=== PATIENT | female | born 1975 | race Caucasian/White ===

== ENCOUNTER → 2016-05-11 | Outpatient (CLI) | payer OTHER ==
--- NOTE | 2016-05-11 14:51 | REP ---
Right lower extremity deep vein duplex ultrasound: There are no comparison studies. The deep veins demonstrate normal compression, normal Doppler color flow and normal Doppler waveforms from the popliteal vein to the common femoral vein. There is no deep vein thrombus. However, there varicosities and there is intraluminal thrombus in the superficial veins varicosity medial to the knee. Signed by Ramiro Núñez MD 05/11/2016 02:42 P
== END ==
LOC: M RAD 13:58
PROVIDERS: ATTEND Physician Assistant
DX: M79.604 Pain in right leg (principal); R22.41 Localized swelling, mass and lump, right lower limb; I83.891 Varicose veins of right lower extremity with other complications

== ENCOUNTER 2016-08-19 23:59 | Emergency (ER) | payer OTHER ==
[~2016-08-19] VITALS: Ht 152.4 cm; Wt 57.0 kg
[2016-08-20] MEDS ORDERED: XANA1TAB2 PO (00:25)
[2016-08-20] MEDS ORDERED: TRAM50TA2 PO (00:25)
[2016-08-20] MEDS ORDERED: HYDROmorphone HCL 1 MG/ML SYRINGE (J1170) IM ONE (03:00)
[2016-08-20 05:11] VITALS: BP 109/74
[2016-08-20] MEDS ORDERED: KETOROLAC 60 MG/2 ML VIAL (J1885) IM ONE (05:30)
[2016-08-20] MEDS ORDERED: NORCO 5/325MG TABLET (BULK FOR ED) PO ONE (05:30)
--- NOTE | 2016-08-20 08:14 | REP ---
RIGHT SHOULDER, THREE VIEWS: HISTORY: Pain. There is no acute fracture or dislocation. The joint spaces are normal in appearance. IMPRESSION: There is no acute fracture or dislocation. Signed by Bashir Dow MD 08/20/2016 08:17 A
== END 2016-08-20 06:13 | disposition home or self-care (01) ==
LOC: M ED 23:59
DX: M75.81 Other shoulder lesions, right shoulder (principal); F41.9 Anxiety disorder, unspecified; F17.200 Nicotine dependence, unspecified, uncomplicated; Z79.899 Other long term (current) drug therapy
CPT/HCPCS: 73030; 96372; 99283; J1170; J1885

== ENCOUNTER 2016-08-27 15:08 | Emergency (ER) | payer OTHER ==
[~2016-08-27] VITALS: Ht 152.4 cm; Wt 59.6 kg
[~2016-08-27 15:08] MED LIST: TRAM50TA2 PO; XANA1TAB2 PO
[2016-08-27 15:11] VITALS: BP 120/72
[2016-08-27] MEDS ORDERED: IBUP-1022 PO (15:44)
== END 2016-08-27 16:00 | disposition home or self-care (01) ==
LOC: M ED 15:08
DX: S46.011A Strain of muscle(s) and tendon(s) of the rotator cuff of right shoulder, initial encounter (principal); X50.0XXA Overexertion from strenuous movement or load, initial encounter; Y92.511 Restaurant or cafe as the place of occurrence of the external cause; Y93.G9 Activity, other involving cooking and grilling; Y99.8 Other external cause status; F41.9 Anxiety disorder, unspecified; F17.200 Nicotine dependence, unspecified, uncomplicated; Z79.899 Other long term (current) drug therapy

== ENCOUNTER 2017-02-18 17:28 | Observation (INO) | payer SELFPAY, OTHER ==
[2017-02-18 18:06] LABS: ABG BASE EXCESS -3.8 (-2.0-2.0); ABG HCO3 21.2 MEQ/L (22.0-26.0); ABG O2 SATURATION 96.4 % (95.0-99.0); ABG PARTIAL PRESSURE CO2 38.5 mmHg (35.0-45.0); ABG PARTIAL PRESSURE O2 81.9 mmHg (75.0-100.0); ABG STANDARD HCO3 21.3 MEQ/L (22.0-26.0); ABG TOTAL CO2 22.4 MEQ/L (22.0-29.0); ABG pH (ARTERIAL) 7.359 UNITS (7.350-7.450)
[2017-02-18 18:14] LABS: BASO # 0.1 10^3/uL (0.0-0.2); BASO % 0.5 % (0.0-1.0); EOS # 0.1 10^3/uL (0.0-0.50); EOS % 1.1 % (0.0-3.0); HEMATOCRIT 40.7 % (36.0-47.0); HEMOGLOBIN 13.7 g/dl (12.0-16.0); IMMATURE GRANULOCYTE # 0.2 10^3/uL (0-0); IMMATURE GRANULOCYTE % 1.6 % (0-0); LYMPH # 1.9 10^3/uL (1.5-4.5); MEAN CORPUSCULAR HEMOGLOBIN 32.2 pg (27.0-33.0); MEAN CORPUSCULAR HGB CONC 33.7 g/dl (32.0-36.5); MEAN CORPUSCULAR VOLUME 95.8 fl (80.0-96.0); MONO # 0.3 10^3/uL (0.0-0.8); MONO % 2.7 % (0.0-5.0); NEUTROPHILS # 8.8 10^3/uL (1.8-7.7); NEUTROPHILS % 77.1 % (36.0-66.0); PLATELET COUNT, AUTOMATED 231 10^3/uL (150-450); RED BLOOD COUNT 4.25 10^6/uL (4.00-5.40); RED CELL DISTRIBUTION WIDTH 12.5 % (11.5-14.5); WHITE BLOOD COUNT 11.4 10^3/uL (4.0-10.0)
[2017-02-18 18:16] LABS: BEDSIDE GLUCOSE 134 MG/DL (70-105)
[2017-02-18 18:27] LABS: CONTROL LINE HCG INT CTR LINE PRESENT; HCG, SERUM QUALITATIVE NEGATIVE (NEGATIVE); KETONE, URINE AUTO RFX TRACE mg/dL (NEGATIVE); MUCUS, URINE RFX LARGE (NEGATIVE); NITRITE, URINE AUTO RFX NEGATIVE (NEGATIVE); RBC, URINE AUTO RFX 12 /HPF (0-3); SPECIFIC GRAVITY UR AUTO RFX 1.018 (1.002-1.035); SQUAM EPITHELIAL CELL UR AURFX 92 /HPF (0-6)
[2017-02-18 18:32] LABS: OSMOLALITY SERUM 295 MOSM/KG (275-295)
[2017-02-18 18:39] LABS: LEUKOCYTE ESTERASE UR AUTO RFX 1+ (NEGATIVE); WBC, URINE AUTO RFX 31 /HPF (0-3)
[2017-02-18 18:40] LABS: AMPHETAMINES LEVEL URINE NEGATIVE (NEGATIVE); BARBITURATES URINE NEGATIVE (NEGATIVE); BENZODIAZEPINES URINE POSITIVE (NEGATIVE); CANNABINOIDS URINE NEGATIVE (NEGATIVE); COCAINE METABOLITE URINE POSITIVE (NEGATIVE); METHADONE URINE NEGATIVE (NEGATIVE); OPIATES URINE POSITIVE (NEGATIVE); PHENCYCLIDINE URINE NEGATIVE (NEGATIVE)
[2017-02-18 18:51] LABS: LACTIC ACID SEPSIS PROTOCOL 5.9 MMOL/L (0.4-2.0)
[2017-02-18 18:52] LABS: ALKALINE PHOSPHATASE 96 U/L (45-117); ALT/SGPT 177 U/L (12-78); ANION GAP 14 MEQ/L (8-16); AST/SGOT 120 U/L (7-37); BILIRUBIN,DIRECT 0.1 MG/DL (0.0-0.2); BILIRUBIN,TOTAL 0.3 MG/DL (0.2-1.0); BLOOD UREA NITROGEN 18 MG/DL (7-18); CALCIUM LEVEL 7.7 MG/DL (8.5-10.1); CARBON DIOXIDE LEVEL 18 MEQ/L (21-32); CHLORIDE LEVEL 109 MEQ/L (98-107); CPK CREATINE PHOSPHOKINASE 229 U/L (26-192); CREATININE FOR GFR 0.76 MG/DL (0.55-1.02); GLOMERULAR FILTRATION RATE > 60.0 (>58); GLUCOSE, FASTING 170 MG/DL (70-105); POTASSIUM SERUM 3.3 MEQ/L (3.5-5.1); SODIUM LEVEL 141 MEQ/L (136-145)
[2017-02-18] MEDS: MULTIVITAMIN -ADULT INJECTION 10 ML, THIAMINE INJection 100 MG, FOLIC ACID 1 MG in NS 1... IV (18:52)
[2017-02-18 18:53] LABS: ACETAMINOPHEN LEVEL < 2.0 UG/ML (10.0-30.0); ALBUMIN 3.5 GM/DL (3.2-5.2); ALBUMIN/GLOBULIN RATIO 1.09 (1.00-1.93); ETHYL ALCOHOL (ETHANOL) < 0.003 % (0.000-0.010); SALICYLATE LEVEL < 1.7 MG/DL (5.0-30.0); TOTAL PROTEIN 6.7 GM/DL (6.4-8.2)
[2017-02-18] MEDS: SODIUM CHLORIDE 0.9% 1000 ML IV ×2 (19:00→19:30)
[2017-02-18] MEDS: POTASSIUM CHLORIDE 10 MEQ SR TABLET PO (19:00)
[2017-02-18 19:10] LABS: CARBOXYHEMOGLOBIN 4.9 % (0.0-1.5)
[2017-02-18 19:17] LABS: FREE T4 1.16 NG/DL (0.76-1.46); MAGNESIUM LEVEL 2.1 MG/DL (1.8-2.4); TROPONIN I 0.03 NG/ML (< 0.10)
[2017-02-18 19:23] LABS: INR 0.94; PROTHROMBIN TIME 12.7 SECONDS (12.4-14.5)
[2017-02-18] MEDS: NS 1,000 ML IV (21:25)
[2017-02-18] MEDS ORDERED: ONDANSETRON 4MG/2ML VIAL (J2405) IV (21:30)
[2017-02-19 06:44] LABS: CARBOXYHEMOGLOBIN 1.3 % (0.0-1.5)
[2017-02-19 06:44] LABS: BASO % 0.4 % (0.0-1.0); EOS # 0.1 10^3/uL (0.0-0.50); EOS % 1.5 % (0.0-3.0); HEMATOCRIT 30.9 % (36.0-47.0); IMMATURE GRANULOCYTE # 0.1 10^3/uL (0-0); IMMATURE GRANULOCYTE % 0.6 % (0-0); LYMPH # 2.6 10^3/uL (1.5-4.5); MEAN CORPUSCULAR HEMOGLOBIN 32.1 pg (27.0-33.0); MEAN CORPUSCULAR VOLUME 94.5 fl (80.0-96.0); MONO # 0.6 10^3/uL (0.0-0.8); MONO % 6.9 % (0.0-5.0); NEUTROPHILS # 4.8 10^3/uL (1.8-7.7); NEUTROPHILS % 58.6 % (36.0-66.0); PLATELET COUNT, AUTOMATED 196 10^3/uL (150-450); RED BLOOD COUNT 3.27 10^6/uL (4.00-5.40); RED CELL DISTRIBUTION WIDTH 12.7 % (11.5-14.5); WHITE BLOOD COUNT 8.3 10^3/uL (4.0-10.0)
[2017-02-19 06:49] LABS: HEMOGLOBIN 10.5 g/dl (12.0-16.0)
[2017-02-19 07:14] LABS: ALT/SGPT 149 U/L (12-78); ANION GAP 7 MEQ/L (8-16); AST/SGOT 99 U/L (7-37); BLOOD UREA NITROGEN 12 MG/DL (7-18); CALCIUM LEVEL 7.5 MG/DL (8.5-10.1); CARBON DIOXIDE LEVEL 24 MEQ/L (21-32); CHLORIDE LEVEL 112 MEQ/L (98-107); CPK CREATINE PHOSPHOKINASE 85 U/L (26-192); CREATININE FOR GFR 0.54 MG/DL (0.55-1.02); GLOMERULAR FILTRATION RATE > 60.0 (>58); GLUCOSE, FASTING 116 MG/DL (70-105); POTASSIUM SERUM 3.8 MEQ/L (3.5-5.1); SODIUM LEVEL 143 MEQ/L (136-145); THYROID STIMULATING HORMONE 0.957 uIU/ML (0.358-3.740)
[2017-02-19 07:41] LABS: ERYTHROCYTE SEDIMENTATION RATE 91 mm/hr (0-20)
[2017-02-19 08:21] LABS: C REACTIVE PROTEIN QUANTITATIV 1.06 MG/DL (0.00-0.30)
[2017-02-19] MEDS ORDERED: ENOXAPARIN 40 MG/0.4 ML SYRINGE (J1650) SC (09:00)
[2017-03-02 08:25] LABS: MDPV Negative; MEPHEDRONE Negative
[2017-03-02 08:26] LABS: METHYLONE Negative
== END 2017-02-19 08:04 | disposition home or self-care (01) ==
LOC: M ED 17:28 → M ED INP 21:22
DX: T50.901A Poisoning by unspecified drugs, medicaments and biological substances, accidental (unintentional), initial encounter (principal); I49.9 Cardiac arrhythmia, unspecified; E87.2 Acidosis; M62.82 Rhabdomyolysis; T58.94XA Toxic effect of carbon monoxide from unspecified source, undetermined, initial encounter; Y92.098 Other place in other non-institutional residence as the place of occurrence of the external cause; R74.0 Nonspecific elevation of levels of transaminase and lactic acid dehydrogenase [LDH]; E87.6 Hypokalemia; R94.6 Abnormal results of thyroid function studies; F41.9 Anxiety disorder, unspecified; Z79.899 Other long term (current) drug therapy; F17.210 Nicotine dependence, cigarettes, uncomplicated; F14.10 Cocaine abuse, uncomplicated; F12.10 Cannabis abuse, uncomplicated; F19.10 Other psychoactive substance abuse, uncomplicated
CPT/HCPCS: J3411

== ENCOUNTER → 2018-06-11 | Outpatient (CLI) | payer OTHER ==
[~2018-06-11] MED LIST changes: +ALPR1TAB3 PO; +IBUP-1022 PO; +METH-1022 PO; +METH20TA29 PO
[2018-06-11 12:43] LABS: HEMATOCRIT 41.8 % (36.0-47.0); MEAN CORPUSCULAR HEMOGLOBIN 32.9 pg (27.0-33.0); MEAN CORPUSCULAR HGB CONC 33.5 g/dl (32.0-36.5); MEAN CORPUSCULAR VOLUME 98.1 fl (80.0-96.0); PLATELET COUNT, AUTOMATED 225 10^3/uL (150-450); RED BLOOD COUNT 4.26 10^6/uL (4.00-5.40); WHITE BLOOD COUNT 9.1 10^3/uL (4.0-10.0)
[2018-06-11 13:23] LABS: HEMOGLOBIN A1c 5.3 %
[2018-06-11 13:26] LABS: ALBUMIN 3.5 GM/DL (3.2-5.2); ALT/SGPT 56 U/L (12-78); BILIRUBIN,TOTAL 0.3 MG/DL (0.2-1.0); BLOOD UREA NITROGEN 19 MG/DL (7-18); CALCIUM LEVEL 8.8 MG/DL (8.5-10.1); CARBON DIOXIDE LEVEL 28 MEQ/L (21-32); CHLORIDE LEVEL 108 MEQ/L (98-107); CHOLESTEROL LEVEL 258 MG/DL (<200); CHOLESTEROL RISK RATIO 3.225 (<5); CREATININE FOR GFR 0.58 MG/DL (0.55-1.30); GLOMERULAR FILTRATION RATE > 60.0 (>58); GLUCOSE, FASTING 81 MG/DL (70-100); HDL CHOLESTEROL 80 MG/DL (>40); LDL CHOLESTEROL 149 MG/DL (<100); NON-HDL-C 178 MG/DL; POTASSIUM SERUM 4.8 MEQ/L (3.5-5.1); SODIUM LEVEL 141 MEQ/L (136-145); THYROXINE (T4) 9.2 UG/DL (4.5-12.0); TOTAL PROTEIN 7.6 GM/DL (6.4-8.2); TRIGLYCERIDES LEVEL 147 MG/DL (<150)
[2018-06-11 14:08] LABS: TOTAL 25(OH) VITAMIN D 13.9 NG/ML (30.0-100.0)
--- NOTE | 2018-06-11 16:57 | REPMRS ---
Patient History The patient states she has not had a clinical breast exam in over a year. Family history of colorectal cancer in maternal grandfather. Digital Mammo Screening Bilat: June 11, 2018 - Exam #: [id number] Bilateral CC and MLO view(s) were taken. Technologist: Anat Romero Technologist FINDINGS: There are scattered fibroglandular densities. There is no evidence of dominant mass, architectural distortion, or clustered microcalcification typical of malignancy. 3-D tomosynthesis shows no additional findings. Assessment: BI-RADS/ACR category 1 mammogram. Negative Mammogram. Recommendation Routine screening mammogram of both breasts in 1 year (for women over age 40). This patient's Lifetime Breast Cancer RIsk is estimated at 7.9 %. This mammogram was interpreted with the aid of an FDA-approved computer-aided dectection system. Electronically Signed By: Dalton Newton MD 06/11/18 [id number]
--- NOTE | 2018-06-13 00:01 | ECGEPIP ---
Stationary ECG Study Test Date: 2018-06-11 Pat Name: MIKE BROCK Department: Room: - Gender: F Ripsaw Matcher: JL : 1975 Requested By: Daya Quiroga Order Number: [id number] Reading MD: Gab Kevin Measurements Intervals [place] Rate: 85 P: 39 CA: 146 QRS: 26 QRSD: 90 T: 41 QT: 370 QTc: 441 Interpretive Statements SINUS RHYTHM MOST RECENT TRACING ON 02/18/2017 AT 5:58:18 P.M.. A JUNCTIONAL RHYTHM WAS NOTED Electronically Signed On 06-13-2018 0:00:51 EDT by Gab Kevin
== END ==
LOC: M LAB 11:48
PROVIDERS: ATTEND Family Medicine
DX: I10 Essential (primary) hypertension (principal); R53.83 Other fatigue; E03.9 Hypothyroidism, unspecified; Z12.31 Encounter for screening mammogram for malignant neoplasm of breast

== ENCOUNTER → 2018-11-21 | Outpatient (CLI) | payer OTHER ==
[2018-11-21 15:21] LABS: HEMATOCRIT 40.8 % (36.0-47.0); HEMOGLOBIN 13.5 g/dl (12.0-15.5); MEAN CORPUSCULAR HEMOGLOBIN 31.8 pg (27.0-33.0); MEAN CORPUSCULAR HGB CONC 33.1 g/dl (32.0-36.5); PLATELET COUNT, AUTOMATED 253 10^3/uL (150-450); RED BLOOD COUNT 4.25 10^6/uL (4.00-5.40); WHITE BLOOD COUNT 6.5 10^3/uL (4.0-10.0)
[2018-11-21 15:56] LABS: ALBUMIN 3.4 GM/DL (3.2-5.2); ALT/SGPT 78 U/L (12-78); BILIRUBIN,TOTAL 0.4 MG/DL (0.2-1.0); BLOOD UREA NITROGEN 12 MG/DL (7-18); CALCIUM LEVEL 8.9 MG/DL (8.5-10.1); CARBON DIOXIDE LEVEL 29 MEQ/L (21-32); CHLORIDE LEVEL 107 MEQ/L (98-107); CHOLESTEROL LEVEL 194 MG/DL (<200); CHOLESTEROL RISK RATIO 4.619 (<5); CREATININE FOR GFR 0.77 MG/DL (0.55-1.30); GLOMERULAR FILTRATION RATE > 60.0 (>58); GLUCOSE, FASTING 98 MG/DL (70-100); HDL CHOLESTEROL 42 MG/DL (>40); LDL CHOLESTEROL 97 MG/DL (<100); NON-HDL-C 152 MG/DL; POTASSIUM SERUM 3.8 MEQ/L (3.5-5.1); SODIUM LEVEL 140 MEQ/L (136-145); TOTAL PROTEIN 6.5 GM/DL (6.4-8.2); TRIGLYCERIDES LEVEL 276 MG/DL (<150)
[2018-11-21 15:57] LABS: TOTAL 25(OH) VITAMIN D 18.3 NG/ML (30.0-100.0)
== END ==
LOC: M LAB 14:45
PROVIDERS: ATTEND Family Medicine
DX: I10 Essential (primary) hypertension (principal); R53.83 Other fatigue; E03.9 Hypothyroidism, unspecified

== ENCOUNTER → 2019-04-10 | Outpatient (CLI) | payer OTHER ==
[2019-04-10 13:48] LABS: AMPHETAMINES URINE REFLEX NEGATIVE (NEGATIVE); BARBITURATES URINE REFLEX NEGATIVE (NEGATIVE); BENZODIAZEPINES URINE REFLEX NEGATIVE (NEGATIVE); CANNABINOIDS URINE REFLEX NEGATIVE (NEGATIVE); COCAINE METABOLITE URINE REFLE NEGATIVE (NEGATIVE); METHADONE URINE REFLEX NEGATIVE (NEGATIVE); OPIATES URINE REFLEX NEGATIVE (NEGATIVE); PHENCYCLIDINE URINE REFLEX NEGATIVE (NEGATIVE)
== END ==
LOC: M LAB 12:02
PROVIDERS: ATTEND Family Medicine
DX: Z79.899 Other long term (current) drug therapy (principal)

== ENCOUNTER → 2019-05-15 | Outpatient (CLI) | payer OTHER ==
[2019-05-15 17:27] LABS: ALBUMIN 3.9 GM/DL (3.2-5.2); ALT/SGPT 132 U/L (12-78); BILIRUBIN,TOTAL 0.6 MG/DL (0.2-1.0); BLOOD UREA NITROGEN 22 MG/DL (7-18); CALCIUM LEVEL 9.6 MG/DL (8.5-10.1); CARBON DIOXIDE LEVEL 27 MEQ/L (21-32); CHLORIDE LEVEL 102 MEQ/L (98-107); CHOLESTEROL LEVEL 262 MG/DL (<200); CHOLESTEROL RISK RATIO 3.797 (<5); CREATININE FOR GFR 0.79 MG/DL (0.55-1.30); GLOMERULAR FILTRATION RATE > 60.0 (>58); GLUCOSE, FASTING 96 MG/DL (70-100); HDL CHOLESTEROL 69 MG/DL (>40); LDL CHOLESTEROL 177 MG/DL (<100); NON-HDL-C 193 MG/DL; POTASSIUM SERUM 3.7 MEQ/L (3.5-5.1); SODIUM LEVEL 137 MEQ/L (136-145); TOTAL PROTEIN 7.8 GM/DL (6.4-8.2); TRIGLYCERIDES LEVEL 80 MG/DL (<150)
[2019-05-15 17:29] LABS: TOTAL 25(OH) VITAMIN D 28.8 NG/ML (30.0-100.0)
== END ==
LOC: M LAB 15:51
PROVIDERS: ATTEND Family Medicine
DX: D64.9 Anemia, unspecified (principal); E03.9 Hypothyroidism, unspecified

== ENCOUNTER 2020-07-22 14:09 | Inpatient (IN) | payer OTHER ==
[~2020-07-22] VITALS: Ht 152.4 cm; Wt 83.3 kg
[2020-07-22] MEDS ORDERED: GABA-282 PO (14:22)
[2020-07-22 15:45] LABS: HEMATOCRIT 38.6 % (36.0-47.0); HEMOGLOBIN 13.1 g/dl (12.0-15.5); MEAN CORPUSCULAR HEMOGLOBIN 31.6 pg (27.0-33.0); MEAN CORPUSCULAR HGB CONC 33.9 g/dl (32.0-36.5); PLATELET COUNT, AUTOMATED 174 10^3/uL (150-450); RED BLOOD COUNT 4.15 10^6/uL (4.00-5.40); WHITE BLOOD COUNT 10.1 10^3/uL (4.0-10.0)
[2020-07-22 16:18] LABS: BLOOD UREA NITROGEN 17 MG/DL (7-18); CALCIUM LEVEL 9.5 MG/DL (8.5-10.1); CARBON DIOXIDE LEVEL 26 MEQ/L (21-32); CHLORIDE LEVEL 105 MEQ/L (98-107); CREATININE FOR GFR 0.66 MG/DL (0.55-1.30); GLOMERULAR FILTRATION RATE > 60.0 (>58); GLUCOSE, FASTING 107 MG/DL (70-100); POTASSIUM SERUM 3.9 MEQ/L (3.5-5.1); SODIUM LEVEL 134 MEQ/L (136-145)
[2020-07-22] MEDS ORDERED: NS 2,420 ML in IV 1 EA IV ONE (16:30)
[2020-07-22] MEDS ORDERED: VANCOMYCIN HCL 1,500 MG in NS 250 ML IV ONE (16:30)
[2020-07-22] MEDS ORDERED: ACETAMINOPHEN 500 MG TAB PO ONE (16:30)
[2020-07-22 17:07] LABS: ATYPICAL LYMPH 8 % (0-5); BASOPHILS 1 % (0-1); LYMPHOCYTES 14 % (16-44); MONOCYTES 4 % (0-5); NEUTROPHILS 53 % (28-66); PLATELET ESTIMATE NORMAL (NORMAL)
[2020-07-22 17:17] LABS: RSV AMPLIFICATION NEGATIVE (NEGATIVE)
[2020-07-22 17:30] LABS: HCG, SERUM QUALITATIVE NEGATIVE (NEGATIVE)
--- NOTE | 2020-07-22 17:51 | REP ---
INDICATION: severe redness, swelling. COMPARISON: None. TECHNIQUE: Multiple ultrasonographic images of the deep venous structures of the left lower extremity were obtained from the inguinal ligament to the ankle. Venous compression techniques, color doppler imaging, and augmentation techniques were also obtained where appropriate. As per the ACR guidelines the anterior tibial vein can not be effectively evaluated. Only compression techniques in the calf on the peroneal and posterior tibial veins was attempted/performed. FINDINGS: There is no abnormal echogenic material seen within any of the visualized deep venous structures that would suggest acute thrombosis. Coaptation is unremarkable throughout. Doppler interrogation shows an expected response to respiratory variability and augmentation in the thigh. Compression techniques in the calf were unobtainable. The color flow images show what appears to be a normal vascular pattern throughout the thigh. IMPRESSION: There is no ultrasonographic evidence of deep venous thrombosis involving any of the visualized deep venous structures of the left lower extremity as described above. Due to technical parameters calf vein DVT can not be ruled out. <Electronically signed by Wojciech Hunter > 07/22/20 [id number]
--- NOTE | 2020-07-22 17:52 | REP ---
INDICATION: severe redness, swelling. COMPARISON: None. TECHNIQUE: Ultrasonographic evaluation over an area of focal erythema and swelling in the left distal calf medially FINDINGS: There are no cystic or solid masses. There is no ultrasonographic evidence of a well-demarcated abscess. There is no abnormal fluid collection. IMPRESSION: No abnormality noted as described above. <Electronically signed by Wojciech Hunter > 07/22/20 [id number]
[2020-07-22] MEDS ORDERED: VANCOMYCIN HCL 750 MG, VIAL MATE ADAPTER 1 EACH in NS 250 ML IV ONE ×2 (18:00→19:00)
[2020-07-22 18:51] LABS: MONO REFLEX EBV COMP NEGATIVE (NEGATIVE)
[2020-07-22 18:55] LABS: CK-MB VALUE MASS 1.1 NG/ML (<3.6); CPK CREATINE PHOSPHOKINASE 126 U/L (26-192); MB/CK RELATIVE INDEX 0.87 (< OR =4)
[2020-07-22] MEDS ORDERED: KETOROLAC 30 MG/ML 1ML VIAL IV ONE (19:05)
[2020-07-22] MEDS ORDERED: MOM 30ML SUSPENSION UDC PO PRN (19:45)
[2020-07-22 20:13] LABS: ERYTHROCYTE SEDIMENTATION RATE 76 mm/hr (0-20)
[2020-07-22] MEDS ORDERED: ISOVUE-370 76% 100ML VIAL As Ordered ONE (20:48)
--- NOTE | 2020-07-22 20:56 | HPEPDOC ---
[facility] Medical History & Physical Date of Admission Jul 22, 2020 Date of Service: Jul 22, 2020 Primary Care Physician: Daya Quinonez Attending Physician: MATTEO DUKE MD History and Physical CHIEF COMPLAINT: Left lower extremity swelling and redness HISTORY OF PRESENT ILLNESS: . Ms. Alaniz is a 45-year-old female who presented to the ER this afternoon with complaints of redness and swelling at the left lower extremity since Monday. Patient states she got up on Monday and didn't feel well but went to work anyway at [employer]. She was noted to have a positive fever greater than 101 and was sent home. She said she went straight to bed. When she went home and didn't really know the source of her illness. He was talking to her son at about midnight that night when he noticed some redness at the left ankle. She denies any falls, acute trauma, bites or injections at that site. She noted that the erythema had extended up her leg. The next day. She complained of swelling at the leg. She said she did not notice any further fever or chills. She denied any nausea, vomiting or diarrhea. She states that the leg did not hurt, but that it itched sometimes. She stated that when she would scratch it, it would then burn. She thought about coming to the ER on Monday with the erythema extending up her leg, but decided that she was too tired. When she woke up today, the erythema was intense and there were blisters at her knee since last night. She decided it was time to be evaluated and presented to the ER. On initial evaluation she was noted to be hypotensive with blood pressure of 90/50. She was given IV fluids per sepsis protocol and blood pressure improved. She has had a persistent fever with MAXIMUM TEMPERATURE of 100.9. She was tachycardic with heart rate of 112. Lactic acid was elevated at 3.1. CRP was also elevated at 12.8. She exhibited a mild white count of 10.1 with bandemia of 20. Lower extremity venous ultrasound and extremity ultrasound were negative for any acute pathology. No DVT noted. The patient denies any recent history of drug use, stating she quit all illicit substances. 2 years ago. Urine tox screen is pending. PAST MEDICAL HISTORY: 1. Anxiety. 2. ADHD. 3. Restless leg syndrome. 4. Polysubstance abuse. PAST SURGICAL HISTORY: . 1. Vein ligation.. SOCIAL HISTORY: Tobacco use:. Patient states she quit 2 years ago ETOH:. Denies Illicit drug use: Admits to smoking pot occasionally Patient lives with:. Her sons FAMILY HISTORY: . Patient's mother at age 56 secondary to liver cancer. Her father had a history of coronary artery disease and at age 44. REVIEW OF SYSTEMS: Complete 10 point review systems is negative except as noted above PHYSICAL EXAMINATION: Patient is seen in the ER, lying on the stretcher.. She is alert and oriented x 3. HEENT is WNL. Neck is supple. Lungs are clear to auscultation. Heart regular rate and rhythm without murmur. Abdomen is soft, non-tender to palpation with bowel sounds positive. Extremities with good ROM and strength equal bilaterally. Pedal pulses are positive. Left lower extremity with erythema extending from her ankle to the left groin area. There is positive adenopathy in the left groin. Blisters noted on the anterior knee. Some areas of this erythema are extremely intense, but there is no open wound. No obvious acute injury or injection site. Leg does not seem to be particularly painful to light touch. She does complain of some pain at the knee with movement. Neuro: grossly intact. Psych: She is pleasant and cooperative ASSESSMENT AND PLAN: 1. Sepsis, severe, secondary to left lower extremity cellulitis, etiology unc lear, as evidenced by tachycardia, hypotension, fever, leukocytosis with bandemia, lactic acidosis, elevated CRP. Will continue patient on IV fluids per sepsis protocol. We'll recheck lactic acid as well as pro-calcitonin. We'll continue the patient on vancomycin and Zosyn. We'll obtain a CT of the left lower extremity to assess for any discrete abscesses or fluid at the knee. Will also check echocardiogram with history of IV drug abuse. Toradol will be available for pain. Will adjust antibiotics as needed based on imaging and culture results. 2. Left lower extremity cellulitis. Plan as noted above. May need to consult orthopedics for aspiration. If fluid is noted at the knee. 3. Hypotension. Improved with fluids. Continue to monitor closely with routine vital signs. IV fluids to continue per protocol. 4. Fever in the setting of sepsis secondary left lower external cellulitis. Continue antipyretics as needed. 5. Restless leg syndrome. Continue home gabapentin. 6. DVT prophylaxis. Lovenox. CODE STATUS: CODE STATUS was discussed with the patient. He desires to be considered full code. She states her son would act as her surrogate if she were unable to make her own decisions. Patient is considered high risk of further deterioration including possible septic shock. She is admitted as inpatient and expected to remain at least 2-3 midnight. 6. Vital Signs Vital Signs Date Time Temp Pulse Resp B/P (MAP) Pulse Ox O2 Delivery O2 Flow Rate FiO2 07/22/20 19:04 100.3 07/22/20 19:00 92 116/65 (82) 99 Room Air 07/22/20 16:32 18 Laboratory Data Labs 24H Laboratory Tests 2 07/22/20 14:55: Neutrophils (%) (Auto) , Nucleated Red Blood Cells % (auto) 0.0, Neutrophils 53, Band Neutrophils 20H, Lymphocytes (Manual) 14L, Monocytes (Manual) 4, Basophils (Manual) 1, Atypical Lymphocytes 8H, Platelet Estimate NORMAL, Anion Gap 3L, Glomerular Filtration Rate > 60.0, Calcium Level 9.5, Total Creatine Kinase 126, Creatine Kinase MB 1.1, Creatine Kinase MB Relative Index 0.87, C-Reactive Protein, Quantitative 12.80H, Human Chorionic Gonadotropin, Qual NEGATIVE, Mon oscreen NEGATIVE 07/22/20 16:25: Coronavirus (COVID-19)(PCR) NEGATIVE, Influenza Type A (RT-PCR) NEGATIVE, Influenza Type B (RT-PCR) NEGATIVE, Respiratory Syncytial Virus (PCR) NEGATIVE 07/22/20 16:42: Lactic Acid Level 3.1*H CBC/BMP Laboratory Tests 07/22/20 14:55 Microbiology Microbiology 07/22/20 Blood Culture, Received Pending 07/22/20 Blood Culture, Received Pending Home Medications Scheduled Gabapentin (Gabapentin) 300 Mg Capsule, 300 MG PO TID Allergies Coded Allergies: No Known Allergies (Verified , 07/22/20) A-FIB/CHADSVASC A-FIB History Current/History of A-Fib/PAF?: No GIULIANA KEANE Jul 22, 2020 20:56
[2020-07-22 21:12] LABS: AMPHETAMINES LEVEL URINE NEGATIVE (NEGATIVE); BARBITURATES URINE NEGATIVE (NEGATIVE); BENZODIAZEPINES URINE NEGATIVE (NEGATIVE); CANNABINOIDS URINE POSITIVE (NEGATIVE); COCAINE METABOLITE URINE NEGATIVE (NEGATIVE); METHADONE URINE NEGATIVE (NEGATIVE); OPIATES URINE NEGATIVE (NEGATIVE); PHENCYCLIDINE URINE NEGATIVE (NEGATIVE)
[2020-07-22] MEDS: GABAPENTIN 300 MG CAP PO SCH (21:13)
[2020-07-22] MEDS: PIPERACILLIN/TAZOBACTAM SOD 4.5 GM in D5W MINI-BAG PLUS 50 ML IV SCH (21:13)
[2020-07-22] MEDS: MUPIROCIN 2% OINT 22 GM TUBE TOP SCH (22:00)
[2020-07-22 22:32] VITALS: BP 115/72
--- NOTE | 2020-07-22 23:04 | REPVR ---
PROCEDURE INFORMATION: Exam: CT Left Lower Extremity Without Contrast, Knee Exam date and time: 07/22/2020 10:10 PM Age: 45 years old Clinical indication: Cellulitis; Knee; Left; Additional info: Lle cellulitis TECHNIQUE: Imaging protocol: CT of the Left lower extremity without contrast was performed. Exam focused on the knee. Radiation optimization: All CT scans at this facility use at least one of these dose optimization techniques: automated exposure control; mA and/or kV adjustment per patient size (includes targeted exams where dose is matched to clinical indication); or iterative reconstruction. COMPARISON: 1. US EXTREMITY NON VASCUL LIMITED LEFT 2020-07-22 17:27 2. US Duplex, Ext,LOWER veins,unilat LEFT 2020-07-22 17:21 FINDINGS: Bones/joints: Mild degenerative joint disease. Soft tissues: Knee soft tissue swelling with subcutaneous stranding, and skin thickening. Evidence for cellulitis. IMPRESSION: Knee soft tissue swelling with subcutaneous stranding, and skin thickening. Evidence for cellulitis. Electronically signed by: Jason Banerjee On 07/22/2020 23:04:19 PM
--- NOTE | 2020-07-22 23:05 | REPVR ---
PROCEDURE INFORMATION: Exam: CT Left Lower Extremity With Contrast, Ankle Exam date and time: 07/22/2020 10:10 PM Age: 45 years old Clinical indication: Cellulitis; Ankle; Left; Additional info: Lle cellulitis TECHNIQUE: Imaging protocol: CT of the Left lower extremity with intravenous contrast was performed. Exam focused on the ankle. Radiation optimization: All CT scans at this facility use at least one of these dose optimization techniques: automated exposure control; mA and/or kV adjustment per patient size (includes targeted exams where dose is matched to clinical indication); or iterative reconstruction. Contrast material: ISOVUE 370; Contrast volume: 100 ml; Contrast route: INTRAVENOUS (IV); COMPARISON: 1. US EXTREMITY NON VASCUL LIMITED LEFT 2020-07-22 17:27 2. US Duplex, Ext,LOWER veins,unilat LEFT 2020-07-22 17:21 FINDINGS: Bones/joints: No acute fracture or dislocation. Soft tissues: Hindfoot subcutaneous stranding and mild skin thickening, correlate for cellulitis. Small soft tissue calcification along the plantar foot. IMPRESSION: 1. No acute osseous abnormality. 2. Hindfoot subcutaneous stranding and mild skin thickening, correlate for cellulitis. Electronically signed by: Jason Banerjee On 07/22/2020 23:05:16 PM
--- NOTE | 2020-07-22 23:13 | REPVR ---
PROCEDURE INFORMATION: Exam: CT Left Lower Extremity Without Contrast; Lower Leg Exam date and time: 07/22/2020 10:10 PM Age: 45 years old Clinical indication: Cellulitis; Lower leg; Left; Additional info: Lle cellulitis TECHNIQUE: Imaging protocol: CT of the Left lower extremity without contrast was performed. Exam focused on the lower leg. Radiation optimization: All CT scans at this facility use at least one of these dose optimization techniques: automated exposure control; mA and/or kV adjustment per patient size (includes targeted exams where dose is matched to clinical indication); or iterative reconstruction. COMPARISON: 1. US EXTREMITY NON VASCUL LIMITED LEFT 2020-07-22 17:27 2. US Duplex, Ext,LOWER veins,unilat LEFT 2020-07-22 17:21 FINDINGS: Limitations: Limited by patient's body habitus. Bones/joints: Small knee joint effusion. Mild degenerative joint disease of the knee. No bony erosion to suggest osteomyelitis. Soft tissues: Predominantly anterior, and medial lower extremity skin thickening and subcutaneous stranding and mild edema. No gas foci or focal fluid collection. Correlate for cellulitis or edema. Superficial varices. Vasculature: Vasculature appears patent. IMPRESSION: Small knee joint effusion. Predominantly anterior, and medial lower extremity skin thickening and subcutaneous stranding and mild edema. No gas foci or focal fluid collection, or evidence for necrotizing fasciitis. Correlate for cellulitis or edema. Electronically signed by: Jason Banerjee On 07/22/2020 23:13:29 PM
[2020-07-22] MEDS: VANCOMYCIN HCL 1,000 MG, VIAL MATE ADAPTER 1 EACH in NS 250 ML IV SCH (23:38)
[2020-07-22] MEDS: ACETAMINOPHEN TAB 650MG DOSE (2X325MG) PO PRN (23:39)
[2020-07-23] MEDS: KETOROLAC 30 MG/ML 1ML VIAL IV PRN ×3 (01:02→18:17)
[2020-07-23] MEDS: NS 1,000 ML IV SCH ×2 (01:05→14:10)
[2020-07-23 02:00] VITALS: BP 95/62
[2020-07-23] MEDS: ONDANSETRON 4MG/2ML VIAL IV PRN (03:35)
[2020-07-23] MEDS: PIPERACILLIN/TAZOBACTAM SOD 4.5 GM in D5W MINI-BAG PLUS 50 ML IV SCH ×4 (03:35→20:53)
[2020-07-23 06:00] VITALS: BP 100/62
[2020-07-23] MEDS: MUPIROCIN 2% OINT 22 GM TUBE TOP SCH ×2 (06:02→20:53)
[2020-07-23] MEDS: MAALOX 30 ML SUSP *UDC PO PRN ×2 (06:19→14:09)
[2020-07-23 06:47] LABS: HEMATOCRIT 31.6 % (36.0-47.0); HEMOGLOBIN 10.5 g/dl (12.0-15.5); MEAN CORPUSCULAR HEMOGLOBIN 31.1 pg (27.0-33.0); MEAN CORPUSCULAR HGB CONC 33.2 g/dl (32.0-36.5); MEAN CORPUSCULAR VOLUME 93.5 fl (80.0-96.0); PLATELET COUNT, AUTOMATED 142 10^3/uL (150-450); RED BLOOD COUNT 3.38 10^6/uL (4.00-5.40); WHITE BLOOD COUNT 9.3 10^3/uL (4.0-10.0)
[2020-07-23 07:08] LABS: BLOOD UREA NITROGEN 11 MG/DL (7-18); CALCIUM LEVEL 8.1 MG/DL (8.5-10.1); CARBON DIOXIDE LEVEL 22 MEQ/L (21-32); CHLORIDE LEVEL 112 MEQ/L (98-107); CREATININE FOR GFR 0.53 MG/DL (0.55-1.30); GLOMERULAR FILTRATION RATE > 60.0 (>58); GLUCOSE, FASTING 134 MG/DL (70-100); MAGNESIUM LEVEL 1.8 MG/DL (1.8-2.4); POTASSIUM SERUM 3.6 MEQ/L (3.5-5.1); SODIUM LEVEL 140 MEQ/L (136-145)
--- NOTE | 2020-07-23 08:17 | ECGEPIP ---
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
[2020-07-23] MEDS: ENOXAPARIN 40MG/0.4ML SYRINGE (J1650 PER 10MG) SC SCH (08:36)
[2020-07-23] MEDS: GABAPENTIN 300 MG CAP PO SCH ×3 (08:36→20:53)
[2020-07-23] MEDS: VANCOMYCIN HCL 1,000 MG, VIAL MATE ADAPTER 1 EACH in NS 250 ML IV SCH ×3 (08:38→23:45)
[2020-07-23 09:30] VITALS: BP 105/63
[2020-07-23] MEDS: ACETAMINOPHEN TAB 650MG DOSE (2X325MG) PO PRN (09:42)
[2020-07-23 14:00] VITALS: BP 111/69
[2020-07-23] MEDS ORDERED: OLANZapine ORAL DISINTEGRATING TAB 5MG PO ONE (17:00)
[2020-07-23 18:00] VITALS: BP 109/66
--- NOTE | 2020-07-23 18:23 | IPNPDOC ---
Text Note Date of Service The patient was seen on 07/23/20. NOTE SUBJECTIVE: Patient feels much improved today and had photo that showed that erythema is improving in the past 24 hours. Reports anxiety about hospitalization but feels safe. PHYSICAL EXAMINATION: VITAL SIGNS: see below GENERAL APPEARANCE: Awake, alert, oriented x 3. NAD but anxious and occasionally teary. HEENT: Atraumatic, normocephalic. Eyes are anicteric. Mucous membranes are pink and moist CARDIOVASCULAR: NSR, regular rhythm, no noted murmurs LUNGS: CTAB ABDOMEN: Normoactive sounds, soft, nondistended. No rebound tenderness or guarding. EXTREMITIES: Tense LLE edema to above knee, spotty erythema circumferentially to above knee with blistering around knee. Areas of erythema were marked. Skin is warm to touch NEUROLOGICAL: Awake, speech is clear, AOx3 LABORATORY DATA: Reviewed IMAGING: Reviewed all, no deep tissue infection ASSESSMENT: 45 y/o female w/ LLE cellulitis, SIRS criteria met, admitted for IV antibiotics. PLAN: #LLE Cellulitis: Improving, continue abx, continue to monitor blood cultures. UDS negative, and TTE pending for eval for endocarditis, however if blood cultures are negative, would consider discharging without PICC/termite treater antibiotics. Meds: Vanco per pharmacy Zosyn - elevate leg - trend blood cultures - daily CBC - Stop IVF # RLS: Continue gabapentin Dispo: Anticipate d/c in 24-48 hours pending blood culture results Code: Full Code Diet: regular diet DVT Prophy: Lovenox Consults: None VS,Fishbone, I+O VS, Fishbone, I+O Laboratory Tests 07/23/20 06:30 Vital Signs Date Time Temp Pulse Resp B/P (MAP) Pulse Ox O2 Delivery O2 Flow Rate FiO2 07/23/20 18:00 98.5 79 30 109/66 (80) 98 Room Air I&O- Last 24 Hours up to 6 AM 07/23/20 06:00 Intake Total 4765 ml Output Total 500 ml Balance 4265 ml GRACE LACY MD [facility] Jul 23, 2020 18:23
[2020-07-23 22:00] VITALS: BP 103/51
[2020-07-24] MEDS: KETOROLAC 30 MG/ML 1ML VIAL IV PRN ×3 (01:10→18:12)
[2020-07-24 02:00] VITALS: BP 105/56
[2020-07-24] MEDS: NS 1,000 ML IV SCH ×2 (03:05→16:25)
[2020-07-24] MEDS: PIPERACILLIN/TAZOBACTAM SOD 4.5 GM in D5W MINI-BAG PLUS 50 ML IV SCH (03:57)
[2020-07-24 06:00] VITALS: BP 122/80
[2020-07-24] MEDS: ONDANSETRON 4MG/2ML VIAL IV PRN (07:50)
[2020-07-24] MEDS: BACTRIM 160MG/800MG DS TAB PO SCH ×2 (09:18→21:38)
[2020-07-24] MEDS: GABAPENTIN 300 MG CAP PO SCH ×3 (09:18→21:38)
[2020-07-24] MEDS: LACTOBACILLUS ACIDOPHILUS CAP (BACID) PO SCH (09:18)
[2020-07-24] MEDS: ENOXAPARIN 40MG/0.4ML SYRINGE (J1650 PER 10MG) SC SCH (09:19)
[2020-07-24] MEDS: MUPIROCIN 2% OINT 22 GM TUBE TOP SCH ×2 (09:28→21:00)
[2020-07-24 16:16] LABS: EBV VIRAL CAPSID AG IgM <36.0 U/mL (0.0-35.9)
--- NOTE | 2020-07-24 16:19 | ECHO ---
ECHOCARDIOGRAM DATE OF PROCEDURE: 07/23/2020 Age: 45 Gender: Height: Weight: REFERRING PHYSICIAN: Dr. Lizeth Villalta PATIENT LOCATION: Room 4217 REASON FOR TESTING: Cellulitis, history of IVDU. 2D MEASUREMENTS: IVS 0.9 cm LV 4.6 cm LVPW 1.0 cm LA 3.0 Aorta 3.1 cm DOPPLER MEASUREMENT Peak velocity across the aortic valve 1.1 m/s Mitral E 0.9 Mitral A 0.5 with a ratio of 1.8 Maximum tricuspid valve velocity 2.6 2D COMMENTS: 1. Normal left ventricular size, wall thickness, and normal global left ventricular systolic function. The estimated left ventricular systolic ejection fraction is 60% to 65%. 2. Normal left atrium. Normal right atrium and right ventricle. 3. The atrial septum appeared to be normal without evidence of defect or shunt. 4. Normal aortic root. 5. No pericardial effusion seen. 6. Mildly calcified aortic valve with normal leaflet excursion. Normal mitral valve, tricuspid valve and pulmonic valve. The proximal pulmonary artery branches were not well visualized. DOPPLER Doppler detects trace mitral regurgitation and mild tricuspid regurgitation. The calculated pulmonary artery systolic pressure varies between 30 to 40 mmHg. Assessment of the left ventricular diastolic function appeared to be normal. IMPRESSION: 1. Normal global left ventricular systolic and diastolic function. 2. Aortic valve sclerosis without stenosis or aortic regurgitation. 3. Trace mitral regurgitation. 4. Mild tricuspid regurgitation with mild pulmonary hypertension. 5. No vegetations noted.
[2020-07-24 18:00] VITALS: BP 115/65
--- NOTE | 2020-07-24 20:16 | IPNPDOC ---
Text Note Date of Service The patient was seen on 07/24/20. NOTE SUBJECTIVE: Patient feels as though the redness in her leg is improving, reports less anxiety today. PHYSICAL EXAMINATION: VITAL SIGNS: see below GENERAL APPEARANCE: Awake, alert, oriented x 3. NAD but anxious and occasionally teary. HEENT: Atraumatic, normocephalic. Eyes are anicteric. Mucous membranes are pink and moist CARDIOVASCULAR: NSR, regular rhythm, no noted murmurs LUNGS: CTAB ABDOMEN: Normoactive sounds, soft, nondistended. No rebound tenderness or guarding. EXTREMITIES: slight patchy edema to LLE to above knee, spotty erythema circumferentially to above knee with improved blistering around knee. Areas of erythema were marked. Skin is warm to touch but cooler than yesterday NEUROLOGICAL: Awake, speech is clear, AOx3 LABORATORY DATA: Reviewed IMAGING: Reviewed all, no deep tissue infection ASSESSMENT: 45 y/o female w/ LLE cellulitis, SIRS criteria met, admitted for IV antibiotics. PLAN: #LLE Cellulitis: Improving, transitioned to Bactrim after BCx were negative. UDS negative, and TTE pending for eval for endocarditis. Will monitor overnight to observe response to oral antibiotics and consider d/c in the morning. Continuing to encourage elevation of leg. Meds: Bactrim DS - elevate leg - daily CBC - Stop IVF # RLS: Continue gabapentin Dispo: Anticipate d/c in 24-48 hours pending clinical response to oral agents Code: Full Code Diet: regular diet DVT Prophy: Lovenox Consults: None VS,Fishbone, I+O VS, Fishbone, I+O Vital Signs Date Time Temp Pulse Resp B/P (MAP) Pulse Ox O2 Delivery O2 Flow Rate FiO2 07/24/20 18:00 99.0 79 16 115/65 (82) 100 Room Air I&O- Last 24 Hours up to 6 AM 07/24/20 06:00 Intake Total 3471 ml Output Total 200 ml Balance 3271 ml GRACE LACY MD [facility] Jul 24, 2020 20:15
[2020-07-24] MEDS: ACETAMINOPHEN TAB 650MG DOSE (2X325MG) PO PRN (21:45)
[2020-07-24 22:00] VITALS: BP 109/58
[2020-07-25 02:00] VITALS: BP 117/67
[2020-07-25 06:00] VITALS: BP 113/56
[2020-07-25 06:49] LABS: HEMATOCRIT 34.1 % (36.0-47.0); MEAN CORPUSCULAR HEMOGLOBIN 31.1 pg (27.0-33.0); MEAN CORPUSCULAR HGB CONC 32.3 g/dl (32.0-36.5); MEAN CORPUSCULAR VOLUME 96.3 fl (80.0-96.0); PLATELET COUNT, AUTOMATED 194 10^3/uL (150-450); RED BLOOD COUNT 3.54 10^6/uL (4.00-5.40)
[2020-07-25] MEDS: GABAPENTIN 300 MG CAP PO SCH (08:55)
[2020-07-25] MEDS: LACTOBACILLUS ACIDOPHILUS CAP (BACID) PO SCH (08:55)
[2020-07-25] MEDS: BACTRIM 160MG/800MG DS TAB PO SCH (08:55)
[2020-07-25] MEDS: ENOXAPARIN 40MG/0.4ML SYRINGE (J1650 PER 10MG) SC SCH (08:55)
[2020-07-25] MEDS: MUPIROCIN 2% OINT 22 GM TUBE TOP SCH (08:56)
[2020-07-25] MEDS: KETOROLAC 30 MG/ML 1ML VIAL IV PRN (08:58)
[2020-07-25 10:00] VITALS: BP 123/75
[2020-07-25] MEDS ORDERED: BACTDSTA PO (10:03)
[2020-07-25] MEDS ORDERED: RISATAB3 PO (10:03)
[2020-07-25] MEDS ORDERED: MUPI2OI TOP (10:03)
--- NOTE | 2020-07-25 11:32 | DS.PDOC ---
Discharge Summary General Date of Admission Jul 22, 2020 at 19:43 Date of Discharge 07/25/2020 Attending Physician: DAVIDE HOLM MD Discharge Summary PROCEDURES PERFORMED DURING STAY: None ADMITTING DIAGNOSES: L leg cellulitis DISCHARGE DIAGNOSES: L leg cellulitis Anxiety. ADHD. Restless leg syndrome. Polysubstance abuse. COMPLICATIONS/CHIEF COMPLAINT: Left Leg Cellulitis. HISTORY OF PRESENT ILLNESS: 45-year-old W who presented to the ER with complaints of redness and swelling at the left lower extremity for a few days. A few days prior to presentation she noted a fever greater than 101 and was sent home while at work and was sent home and later noted left ankle redness with any falls, acute trauma, bites or injections at that site. She noted that the erythema had extended up her leg by next day. HOSPITAL COURSE: On initial evaluation she was noted to be hypotensive with blood pressure of 90/50. She was given IV fluids per sepsis protocol and blood pressure improved. She has had a persistent fever with Tmax of 100.9. She was tachycardic with heart rate of 112. Lactic acid was elevated at 3.1. CRP was also elevated at 12.8. She exhibited a mild white count of 10.1 with bandemia of 20. Lower extremity venous ultrasound and extremity ultrasound were negative for any acute DVT. The patient denies any recent history of drug use, stating she quit all illicit substances 2 years ago. Urine tox screen was positive for marijuana. She was admitted for LLE cellulitis that improved with antibiotics and is now being discharged to complete the course with bactrim while also taking a probiotic while melyssa-antibiotic course. DISCHARGE MEDICATIONS: Please see below. ALLERGIES: Please see below. PHYSICAL EXAMINATION ON DISCHARGE: VITAL SIGNS: Please see below. GENERAL APPEARANCE: Awake, alert, oriented x 3. NAD but anxious and occasionally teary. HEENT: Atraumatic, normocephalic. Eyes are anicteric. Mucous membranes are pink and moist CARDIOVASCULAR: NSR, regular rhythm, no noted murmurs LUNGS: CTAB ABDOMEN: Normoactive sounds, soft, nondistended. No rebound tenderness or guarding. EXTREMITIES: slight receding spotty erythema circumferentially to above knee with improved blistering around knee on LLE. NEUROLOGICAL: Awake, speech is clear, AOx3 LABORATORY DATA: Please see below. IMAGING: LLE US: Ultrasonographic evaluation over an area of focal erythema and swelling in the left distal calf medially FINDINGS: There are no cystic or solid masses. There is no ultrasonographic evidence of a well-demarcated abscess. There is no abnormal fluid collection. IMPRESSION: No abnormality noted as described above. LLE doppler venous US: There is no abnormal echogenic material seen within any of the visualized deep venous structures that would suggest acute thrombosis. Coaptation is unremarkable throughout. Doppler interrogation shows an expected response to respiratory variability and augmentation in the thigh. Compression techniques in the calf were unobtainable. The color flow images show what appears to be a normal vascular pattern throughout the thigh. IMPRESSION: There is no ultrasonographic evidence of deep venous thrombosis involving any of the visualized deep venous structures of the left lower extremity as described above. Due to technical parameters calf vein DVT can not be ruled out. CT LLE: Bones/joints: No acute fracture or dislocation. Soft tissues: Hindfoot subcutaneous stranding and mild skin thickening, correlate for cellulitis. Small soft tissue calcification along the plantar foot. IMPRESSION: 1. No acute osseous abnormality. 2. Hindfoot subcutaneous stranding and mild skin thickening, correlate for cellulitis. L knee CT: Bones/joints: Mild degenerative joint disease. Soft tissues: Knee soft tissue swelling with subcutaneous stranding, and skin thickening. Evidence for cellulitis. IMPRESSION: Knee soft tissue swelling with subcutaneous stranding, and skin thickening. Evidence for cellulitis. LLE CT: Small knee joint effusion. Predominantly anterior, and medial lower extremity skin thickening and subcutaneous stranding and mild edema. No gas foci or focal fluid collection, or evidence for necrotizing fasciitis. Correlate for cellulitis or edema. PROGNOSIS: Good ACTIVITY: As tolerated DIET: regular DISCHARGE PLAN: Home with bactrim course DISPOSITION: Home DISCHARGE INSTRUCTIONS: Home with bactrim course for cellulitis ITEMS TO FOLLOWUP ON ON OUTPATIENT: Resolution of cellulitis DISCHARGE CONDITION: Stable TIME SPENT ON DISCHARGE: 40 minutes. Vital Signs/I&Os Vital Signs Date Time Temp Pulse Resp B/P (MAP) Pulse Ox O2 Delivery O2 Flow Rate FiO2 07/25/20 06:00 97.9 73 18 113/56 (75) 100 Room Air I&O- Last 24 Hours up to 6 AM 07/25/20 06:00 Intake Total 2360 ml Output Total 600 ml Balance 1760 ml Laboratory Data Labs 24H Laboratory Tests 2 07/24/20 12:08: Bedside Glucose (Misc Panel) 119H 07/25/20 06:25: Nucleated Red Blood Cells % (auto) 0.0 CBC/BMP Laboratory Tests 07/25/20 06:25 FSBS Laboratory Tests Test 07/24/20 12:08 Range/Units Bedside Glucose (Misc Panel) 119 70-105 MG/DL Microbiology Microbiology 07/24/20 Wound Culture, Received Pending 07/22/20 Blood Culture - Preliminary, Resulted No Growth after 48 hours. All Specime... 07/22/20 Blood Culture - Preliminary, Resulted No Growth after 48 hours. All Specime... Discharge Medications Scheduled Gabapentin (Gabapentin) 300 Mg Capsule, 300 MG PO TID, (Reported) L.acidoph/L.bulg/B.bif/S.therm (Kera-Bid Caplet) 1 Each Tablet, 1 EA PO DAILY Mupirocin (Mupirocin) 2 % Oint...g., 0 DOSE TOP BID Sulfamethoxazole/Trimethoprim (Sulfamethoxazole-Tmp Ds Tablet) 1 Each Tablet, 1 TAB PO Q12H Allergies Coded Allergies: No Known Allergies (Verified , 07/22/20) DAVIDE HOLM MD Jul 25, 2020 10:12
[2020-07-25] MEDS: ACETAMINOPHEN TAB 650MG DOSE (2X325MG) PO PRN (13:16)
== END 2020-07-25 13:33 | disposition home or self-care (01) | DRG 383 ==
LOC: M ED 14:09 → M ED INP 19:43 → ENRESERV 20:42 → M MSPAV 22:32
PROVIDERS: ADMIT Internal Medicine; ATTEND Internal Medicine
DX: L03.116 Cellulitis of left lower limb (principal); F41.9 Anxiety disorder, unspecified; F90.9 Attention-deficit hyperactivity disorder, unspecified type; G25.81 Restless legs syndrome; Z20.822 Contact with and (suspected) exposure to COVID-19; Z79.899 Other long term (current) drug therapy